=== PATIENT | female | born 1970 | race Two or more races ===

== ENCOUNTER 2021-03-05 02:51 | Emergency (ER) | payer SELFPAY ==
[~2021-03-05] VITALS: Ht 162.6 cm; Wt 74.8 kg
[2021-03-05] MEDS ORDERED: IBUPROFEN 800 MG TAB PO ONE (05:15)
[2021-03-05 06:18] VITALS: BP 114/56
== END 2021-03-05 06:28 | disposition home or self-care (01) ==
LOC: EDBD 02:51 → ER 02:51
DX: S82.842A Displaced bimalleolar fracture of left lower leg, initial encounter for closed fracture (principal); X58.XXXA Exposure to other specified factors, initial encounter; Y93.89 Activity, other specified; Y92.89 Other specified places as the place of occurrence of the external cause; Y99.8 Other external cause status
CPT/HCPCS: 29515; 73610